=== PATIENT | male | born 1990 | race Caucasian/White ===

== ENCOUNTER 2018-10-05 19:08 | Emergency (ER) | payer MEDICARE ==
[2018-10-05 19:29] LABS: #Basophils 0.1 thou/uL (0.0-0.2); #Eosinphils 0.1 thou/uL (0.0-0.7); #Lymphocytes 3.2 thou/uL (1.20-3.40); #Monocytes 0.6 thou/uL (0.11-0.59); #Neutrophils 6.3 thou/uL (1.40-6.50); %Basophils 0.6 % (0.0-1.0); %Eosinophils 1.1 % (0.0-10.0); %Lymphocytes 31.2 % (21.0-51.0); %Monocytes 6.1 % (0.0-10.0); %Neutrophils 61.1 % (42.0-75.0); Hemoglobin 13.2 g/dL (14.0-18.0); Mean Corpuscular HGB CONC 33.6 g/dL (32.0-36.0); Mean Corpuscular Hemoglobin 28.8 pg (27.0-31.0); Mean Corpuscular Volume 85.7 fL (78.0-98.0); Mean Platelet Volume 6.5 fL (7.4-10.4); Platelet Count 306 thou/uL (130-400); RBC Distribution Width 11.9 % (11.5-14.5); Red Blood Cell (RBC) Count 4.59 mill/uL (4.70-6.10); White Blood Cell (WBC) Count 10.3 thou/uL (4.8-10.8)
[2018-10-05 19:50] LABS: ALT (SGPT) 24 U/L (8-55); AST (SGOT) 23 U/L (5-34); Albumin 4.6 g/dL (3.5-5.0); Alcohol Less than 10 mg/dL (Less than 10); Alkaline Phosphatase 68 U/L (40-150); Anion Gap 8 mmol/L (10-20); BUN (Urea Nitrogen) 9 mg/dL (8.9-20.6); Bilirubin, Total 0.4 mg/dL (0.2-1.2); Calc. Creatinine Clearance 0 mL/min (70-130); Calcium 9.7 mg/dL (7.8-10.44); Carbon Dioxide 29 mmol/L (22-29); Chloride 106 mmol/L (98-107); Estimated GFR-MDRD 86; Globulin 3.9 g/dL (2.4-3.5); Glucose 89 mg/dL (70-105); Lipase 23 U/L (8-78); Protein, Total 8.5 g/dL (6.0-8.3); Sodium 139 mmol/L (136-145)
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
--- NOTE | 2018-10-06 13:38 | EKG ---
Test Reason : Blood Pressure : / mmHG Vent. Rate : 065 BPM Atrial Rate : 065 BPM P-R Int : 174 ms QRS Dur : 094 ms QT Int : 412 ms P-R-T Axes : 029 019 007 degrees QTc Int : 428 ms Normal sinus rhythm with sinus arrhythmia Normal ECG Confirmed by BELLE CARLOS DO ([id number]), web editor ANTONINO NAGY ([id number]) on 10/06/2018 1:38:06 PM Referred By: Confirmed By:BELLE CARLOS DO
== END 2018-10-05 21:38 | disposition home or self-care (01) ==
LOC: ERS 19:08
DX: T22.112A Burn of first degree of left forearm, initial encounter (principal); M54.5 Low back pain; F41.9 Anxiety disorder, unspecified; F43.10 Post-traumatic stress disorder, unspecified; F17.220 Nicotine dependence, chewing tobacco, uncomplicated; V89.2XXA Person injured in unspecified motor-vehicle accident, traffic, initial encounter
CPT/HCPCS: 71260; 72125; 74177; 80053; 80307; 83690; 84484; 85025; 93005; G0390

== ENCOUNTER 2019-07-10 21:43 | Emergency (ER) | payer SELFPAY ==
[2019-07-10] MEDS ORDERED: Acetaminophen 500 MG TAB ONE (23:32)
[2019-07-10] MEDS ORDERED: diphenhydrAMINE 50 MG/ML VIAL ONE (23:33)
[2019-07-10] MEDS ORDERED: Metoclopramide HCl 10 MG/2 ML VIAL ONE (23:33)
[2019-07-10 23:51] LABS: #Lymphocytes 1.1 thou/uL (1.20-3.40); #Monocytes 0.4 thou/uL (0.11-0.59); %Basophils 0.5 % (0.0-1.0); %Eosinophils 0.3 % (0.0-10.0); %Lymphocytes 14.6 % (21.0-51.0); %Monocytes 5.7 % (0.0-10.0); %Neutrophils 78.9 % (42.0-75.0); Mean Corpuscular HGB CONC 34.6 g/dL (32.0-36.0); Mean Corpuscular Hemoglobin 29.9 pg (27.0-31.0); Mean Corpuscular Volume 86.3 fL (78.0-98.0); Mean Platelet Volume 6.4 fL (7.4-10.4); Platelet Count 239 thou/uL (130-400); RBC Distribution Width 12.1 % (11.5-14.5); Red Blood Cell (RBC) Count 4.68 mill/uL (4.70-6.10); White Blood Cell (WBC) Count 7.6 thou/uL (4.8-10.8)
--- NOTE | 2019-07-10 23:56 | CT ---
EXAM: CT brain without contrast HISTORY: Headache COMPARISON: None TECHNIQUE: Multiple contiguous axial images were obtained and a CT of the brain without contrast. FINDINGS: The brain is normal in morphology and attenuation without focal lesions or confluent areas of infarction. The apparent hyperdensity in some of the bilateral frontal lobe sulci is likely streak artifact seen along the inner table of the skull. There is no evidence of hydrocephalus, intra cranial hemorrhage, or extra-axial fluid collection. The calvarium and overlying soft tissues are unremarkable. The visualized paranasal sinuses and masto id air cells are well aerated. IMPRESSION: No evidence of acute intracranial abnormality
[2019-07-11 00:23] LABS: ALT (SGPT) 18 U/L (8-55); AST (SGOT) 14 U/L (5-34); Albumin 4.3 g/dL (3.5-5.0); Alkaline Phosphatase 67 U/L (40-150); Anion Gap 15 mmol/L (10-20); BUN (Urea Nitrogen) 11 mg/dL (8.9-20.6); Bilirubin, Total 0.6 mg/dL (0.2-1.2); Calc. Creatinine Clearance 0 mL/min (70-130); Calcium 8.9 mg/dL (7.8-10.44); Carbon Dioxide 24 mmol/L (22-29); Chloride 104 mmol/L (98-107); Estimated GFR-MDRD 63; Glucose 95 mg/dL (70-105); Potassium 4.5 mmol/L (3.5-5.1); Protein, Total 7.3 g/dL (6.0-8.3); Sodium 138 mmol/L (136-145)
[2019-07-11 00:29] LABS: Troponin I Less than 0.010 ng/mL (< 0.028)
[2019-07-11] MEDS ORDERED: Dexamethasone 4 mg/ml Vial ONE (00:46)
--- NOTE | 2019-07-13 12:32 | EKG ---
Test Reason : Blood Pressure : / mmHG Vent. Rate : 076 BPM Atrial Rate : 076 BPM P-R Int : 180 ms QRS Dur : 086 ms QT Int : 384 ms P-R-T Axes : 007 -14 -05 degrees QTc Int : 432 ms Normal sinus rhythm Anterior infarct , age undetermined Abnormal ECG Confirmed by ANDREW SÁNCHEZ DO ([id number]), metropolitan editor ANTONION NAGY ([id number]) on 07/13/2019 12:31:56 PM Referred By: Confirmed By:ANDREW SÁNCHEZ DO
== END 2019-07-11 00:53 | disposition home or self-care (01) ==
LOC: ERS 21:43
DX: R51 Headache (principal); F41.9 Anxiety disorder, unspecified; F43.10 Post-traumatic stress disorder, unspecified; F17.220 Nicotine dependence, chewing tobacco, uncomplicated
CPT/HCPCS: 36415; 70450; 80053; 84484; 85025; 93005; 96365; 96375; J1100; J1200; J2765